=== PATIENT | male | born 1945 | race Caucasian/White ===

== ENCOUNTER 2020-09-27 09:56 | Day surgery (SDC) | payer MEDICARE, BC ==
--- OUTSIDE RECORDS SUMMARY | 2020-09-12 16:22 | XMSREPORT | Referral Summary ---
:1945 Author Organization [facility] Address [address] [place] [address] [address] [place] [address] Care Team Providers Name Role Phone Provider, Attributed RESOURCE Attributed Provider Unavailab Alonzo Castillo PA-C Primary Care Provider Reason for Referral Transitions of Care (Routine) Status Reason Specialty Diagnoses / Referred By Referred To Procedures Contact Contact New Request Patient Diagnoses Dysphagia, unspecified type Screening for colon cancer Moraima Allen, Health, Chi Preference PA-C [place], [address] [facility] [place] [address] [place] [id number] Phone: Fax: Reason for Visit Reason Comments Other Food stuck in throat and tiffany st after eating. Encounter Details Date Type Department Care Team Description 09/12/2020 Office Visit [facility] Moraima Allen, Dysphagia, u nspecified type (Primary Dx); [facility] PA-[place] Screening for colon cancer [address] [place] [address] [place] [address] [place] [address] Allergies No Known Allergiesdocumented as of this encounter (statuses as of 09/12/2020) Medications Medication Sig Dispensed Refills Start Date End Date Status loratadine-pseud Take 1 0 Act ben oephedrine tablet by (CLARITIN-D 24 mouth 1 time HOUR) 10-240 mg per day SR (24 hr) tablet amoxicillin-clav Take 1 20 tablet 0 01/23/2017 09/12/2020 D iscontinued ulanate tablet by (Therapy potassium mouth 2 completed) (AUGMENTIN) times a day 875-125 mg tabletIndication s: Acute non-recurrent frontal sinusitis documented as of this encounter (statuses as of 09/12/2020) Active Problems Problem Noted Date Foreign body (FB) in soft tissue 10/27/2014 Seborrheic wart 10/26/2014 Overview: On right hand. Treated in the past, but several edges remain. Cryotherapy done twice today to 3 small lesions. 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 Is this person blind or does he/she have difficulty No 10/31/2014 seeing even when wearing glasses? Do you have difficulty with walking, balance, climbing No 02/12/2016 stairs, or had a fall in the last 3 months? Does the patient have difficulty dressing or bathing? No 11/01/2014 Because of a physical, mental, or emotional condition; No 10/31/2014 does this person have difficulty doing errands alone such as visiting a doctor's office or shopping? Cognitive Status Response Date of Assessment Because of a physical, mental, or emotional condition; No 10/31/2014 does this person have serious difficulty concentrating, remembering, or making decisions? documented as of this encounter Patient Instructions Patient InstructionsMoraima Allen PA-C - 09/12/2020 8:28 AM CSTYou have a few scattered actinic keratoses. These appear like dry scaling spots. These are pre-cancerous and should be frozen. We get more cryotherapy tomorrow. Stop by anytime for this. No need for anappointment. If the spot on the left side of your nose does not heal completely, we will want to get a biopsy. Right ear cleaned today. AND WILDLIFE BIOLOGIST documented in this encounter Plan of Treatment Name Type Priority Associated Diagnoses Order S chedule CLINIC REFERRAL Referral Routine Dysphagia, unspecified Or dered: 09/12/2020 ENDOSCOPY NON ONE CHART type Screening for colon cancer documented as of this encounter Visit Diagnoses Diagnosis Dysphagia, unspecified type - Primary Screening for colon cancer Special screening for malignant neoplasm s, colon documented in this encounter
[2020-09-25 15:24] LABS: CORONAVIRUS COVID-19 NAA NEGATIVE (NEGATIVE)
[2020-09-27] MEDS: Sodium Chloride 0.9% 10 ML Syringe FLUSH PRN (10:27)
[2020-09-27] MEDS: Lactated Ringers 1,000 ML IV SCH (10:39)
[2020-09-27] MEDS ORDERED: Propofol 200 MG/20 ML SDV ONE ×2 (11:10→11:20)
[2020-09-27] MEDS ORDERED: Glycopyrrolate 0.2 MG/ML SDV ONE (11:20)
[2020-09-27] MEDS ORDERED: Lactated Ringers 1,000 ML IV SCH (11:30)
--- NOTE | 2020-09-27 11:59 | PCM.OPNOTE ---
- General Post-Op/Procedure Note Date of Surgery/Procedure: 09/27/20 Operative Procedure(s): EGD wit Bx. Colonoscopy with polypectomy Findings: Rushing's Sig tics Desc Polyp Pre Op Diagnosis: Dysphagia. Screenig Post-Op Diagnosis: Same Anesthesia Technique: MAC Primary Surgeon: Sp Briggs Anesthesia Provider: Emerald Carson EBL in mLs: 2 Complications: None Condition: Good
--- NOTE | 2020-09-27 14:03 | OR ---
Date of Procedure: 09/27/2020 PREOPERATIVE DIAGNOSES: 1. Dysphagia. 2. Colon screening. POSTOPERATIVE DIAGNOSES: 1. Rushing's esophagus. 2. Hiatal hernia. 3. Sigmoid diverticulosis. 4. Sigmoid colon polyp. PROCEDURE: 1. EGD with biopsies. 2. Colonoscopy with polypectomy. ANESTHESIA: MAC. DESCRIPTION OF PROCEDURE: The patient was brought to the procedure room where he was placed on his left side and IV sedation was administered. Oral bite block was placed and the upper endoscope advanced into the esophagus under direct vision without difficulty. The scope was advanced to the third portion of the duodenum. Duodenum and pylorus were normal. Antrum and body of the stomach were normal. Retroflexion reveals a moderate-sized hiatal hernia. The diaphragm opening is located 40 cm from the incisors and the lower esophageal sphincter was located at 35 cm from the incisors, making this a 5 cm hiatal hernia. He has long segment Rushing's esophagus extending, from 35 cm proximally to 25 cm. There is no stricture that required dilation. There are no changes concerning for malignancy. I did 4-quadrant biopsies at 35, 30, and 25 cm. There was minimal oozing. Air is removed and the scope withdrawn. Patient tolerated this portion of the procedure well. Next, colonoscopy was performed after digital rectal exam was done, which was normal. Colonoscope was inserted and advanced to the level of the cecum without difficulty. Cecal position was confirmed by identifying the appendiceal lumen and ileocecal valve. Prep was good and surfaces were well visualized. Upon withdrawing the scope, the ascending, transverse, and descending colon were normal other than a 6-mm sessile polyp in the distal descending colon at 60 cm. I did remove this with the hot biopsy forceps. Sigmoid colon was somewhat tortuous with multiple diverticula present. The rectum was normal and retroflexion was normal. Air was removed and the scope withdrawn. Patient tolerated the procedure well and returned to recovery in stable condition. I will have the patient follow up with Moraima Allen in one week for review of pathology report. He has not started his omeprazole yet, and I have strongly encouraged him to do that and he will need to remain on this long-term. I would recommend that he undergo a repeat upper endoscopy in one year since this is a newly diagnosed Rushing's. If the colon polyp was adenomatous, he should undergo a repeat colonoscopy again in 5 years. If the polyp is hyperplastic, he does not require further colon screening due to age. OSCAR NICHOLS MD /[id number]
[2020-09-27 14:53] VITALS: BP 119/78; PULSE 95
== END 2020-09-27 13:09 | disposition home or self-care (01) ==
LOC: LL.SDS 09:56
PROVIDERS: ATTEND Surgery
DX: Z12.11 Encounter for screening for malignant neoplasm of colon (principal); D12.4 Benign neoplasm of descending colon; K22.70 Barrett's esophagus without dysplasia; K44.9 Diaphragmatic hernia without obstruction or gangrene; K57.30 Diverticulosis of large intestine without perforation or abscess without bleeding; K31.89 Other diseases of stomach and duodenum; K20.90 Esophagitis, unspecified without bleeding; K22.10 Ulcer of esophagus without bleeding; Z79.899 Other long term (current) drug therapy; Z01.812 Encounter for preprocedural laboratory examination; Z20.822 Contact with and (suspected) exposure to COVID-19
CPT/HCPCS: 00813; J2001; J2704; J3490; J7120; U0002

== ENCOUNTER 2021-10-11 09:56 | Day surgery (SDC) | payer MEDICARE, BC ==
[~2021-10-11 09:56] MED LIST: Midazolam 1 MG/ML 2 ML SDV ONE; Propofol 200 MG/20 ML SDV ONE
[2021-10-11] MEDS ORDERED: Lactated Ringers 1,000 ML IV SCH (11:00)
[2021-10-11] MEDS ORDERED: Sodium Chloride 0.9% 10 ML Syringe FLUSH SCH (11:00)
[2021-10-11] MEDS ORDERED: Midazolam 1 MG/ML 2 ML SDV ONE (11:18)
[2021-10-11] MEDS ORDERED: Lidocaine 2% 5 ML SDV ONE (11:18)
[2021-10-11] MEDS ORDERED: Glycopyrrolate 0.2 MG/ML SDV ONE (11:18)
[2021-10-11] MEDS ORDERED: Propofol 200 MG/20 ML SDV ONE (11:18)
== END 2021-10-11 12:20 | disposition home or self-care (01) ==
LOC: LL.SDS 09:56
PROVIDERS: ATTEND Surgery
DX: K22.70 Barrett's esophagus without dysplasia (principal); K44.9 Diaphragmatic hernia without obstruction or gangrene; R13.10 Dysphagia, unspecified; Z80.0 Family history of malignant neoplasm of digestive organs; Z79.899 Other long term (current) drug therapy; Z98.890 Other specified postprocedural states
CPT/HCPCS: J2250; J2704; J3490; J7120

== ENCOUNTER 2022-03-16 15:31 | Inpatient (IN) | payer MEDICARE, BC ==
[2022-03-16 16:38] LABS: ANION GAP 8.6 meq/L (7-15); CHLORIDE,CL 104 mmol/L (98-107); SODIUM,NA 140 mmol/L (136-145)
[2022-03-16 16:39] LABS: ESTIMATED GFR 64 mL/min (>=60)
[2022-03-16] MEDS ORDERED: Ibuprofen 400 MG Tab PO PRN (16:48)
[2022-03-16] MEDS ORDERED: Ondansetron 4 MG Tab.DIS PO PRN (16:48)
[2022-03-16] MEDS ORDERED: Sodium Chloride 0.9% 10 ML Syringe FLUSH PRN (16:48)
[2022-03-16] MEDS ORDERED: Acetaminophen 325 MG Tab PO PRN (16:48)
[2022-03-16] MEDS ORDERED: Lactated Ringers 1,000 ML IV SCH (17:15)
[2022-03-17] MEDS: Omeprazole 20 MG Cap.CR PO SCH (07:13)
[2022-03-17] MEDS: Fish Oil/Omega-3 Fatty Acids 1 Gm Cap PO SCH (07:13)
[2022-03-17] MEDS: Metoprolol Tartrate 25 MG Tab PO SCH ×2 (09:09→17:49)
[2022-03-18] MEDS: Fish Oil/Omega-3 Fatty Acids 1 Gm Cap PO SCH (07:52)
[2022-03-18] MEDS: Omeprazole 20 MG Cap.CR PO SCH (07:52)
[2022-03-18] MEDS: Metoprolol Tartrate 25 MG Tab PO SCH (07:53)
== END 2022-03-18 10:20 | disposition home or self-care (01) | DRG 310 ==
LOC: LL.ED 15:31 → LL.MS 16:28
PROVIDERS: ADMIT Family Medicine; ATTEND Family Medicine
DX: I49.9 Cardiac arrhythmia, unspecified (principal); R00.2 Palpitations; R53.1 Weakness; K21.9 Gastro-esophageal reflux disease without esophagitis; R13.10 Dysphagia, unspecified; Z79.899 Other long term (current) drug therapy
CPT/HCPCS: 36415; 80048; 80053; 83735; 84443; 84484; 85025; 93005; 93010; 99223; 99233; 99238; 99285-25; A9270-GY; J3490; J7120

== ENCOUNTER 2023-10-16 09:51 | Day surgery (SDC) | payer MEDICARE, BC ==
[~2023-10-16 09:51] MED LIST changes: +Lactated Ringers 1,000 ML IV SCH; -Midazolam 1 MG/ML 2 ML SDV ONE; +Sodium Chloride 0.9% 10 ML Syringe FLUSH PRN
== END 2023-10-16 12:35 | disposition home or self-care (01) ==
LOC: LL.SDS 09:51
PROVIDERS: ATTEND Surgery
DX: K22.70 Barrett's esophagus without dysplasia (principal); K44.9 Diaphragmatic hernia without obstruction or gangrene; L57.0 Actinic keratosis; D48.5 Neoplasm of uncertain behavior of skin; Z79.899 Other long term (current) drug therapy
CPT/HCPCS: 00731; J2704; J7120